=== PATIENT | female | born 1955 | race African-American/Black ===

== ENCOUNTER 2024-12-07 11:41 | Emergency (ER) | payer BC, MEDICAID ==
[~2024-12-07] VITALS: Ht 154.9 cm; Wt 52.0 kg
[2024-12-07 11:52] VITALS: O2SAT 97
[2024-12-07] MEDS: KETOROLAC 15MG/ML VIAL IM ONE (14:14)
[2024-12-07] MEDS ORDERED: IBUP-1455 MT (14:49)
[2024-12-07 15:38] VITALS: BP 124/79; PULSE 86; RESP 18; TEMP 36.7; O2SAT 98
== END 2024-12-07 15:40 | disposition home or self-care (01) ==
LOC: ER 11:41
DX: M25.531 Pain in right wrist (principal); Z98.890 Other specified postprocedural states; W01.0XXA Fall on same level from slipping, tripping and stumbling without subsequent striking against object, initial encounter; Y93.89 Activity, other specified; Y92.89 Other specified places as the place of occurrence of the external cause; Y99.8 Other external cause status
CPT/HCPCS: 99284; 73070; 73090; 73100; 29125; 96372; J1885